=== PATIENT | male | born 1990 | race Caucasian/White ===

== ENCOUNTER 2024-10-27 02:55 | Emergency (ER) | payer OTHER, SELFPAY ==
[2024-10-27 02:59] VITALS: BP 160/106
--- NOTE | 2024-10-27 03:32 | ED.GENMED ---
History of Present Illness
General
Chief Complaint: Back Pain
Source: patient
Exam Limitations: none
Time Seen by Provider: 10/27/24 03:18
History of Present Illness
History of Present Illness:
See MDM
Past History
Past History
ED Past Medical History: None
ED Past Surgical History: Orthopedic
Social History
Tobacco: Non-smoker
Alcohol: None
Phy Exam
Physical Exam
Physical Exam:
See MDM
Course
Orders/Labs/Results
Orders:
Orders
10/27/24 03:26
Ketorolac [Toradol] 30 mg IM NOW STA
Prednisone [Deltasone] 50 mg PO NOW STA
Lumbar Spine, 2 or 3 View [CR Lumbar Spine 2 Or 3 Views] Urgent
Comment:
Reason For Exam: back pain radiating down left leg
10/27/24 04:32
Oxycodone/Acetaminophen [Percocet 5/325] 1 tablet PO NOW STA
Vital Signs
Initial and Last Documented VS:
Initial Vital Signs
Temp Pulse Resp BP Pulse Ox
97.9 F 68 20 160/106 99
10/27/24 02:59 10/27/24 02:59 10/27/24 02:59 10/27/24 02:59 10/27/24 02:59
Last Documented Vital Signs
Temp Pulse Resp BP Pulse Ox
97.9 F 68 20 160/106 99
10/27/24 02:59 10/27/24 02:59 10/27/24 02:59 10/27/24 02:59 10/27/24 03:33
MDM/Problems Addressed
Differential Diagnosis Includes:
Note:
CHIEF COMPLAINT(S)
Worsening back pain radiating down the leg.
HISTORY OF PRESENT ILLNESS
The patient is a 34-year-old male presenting with worsening back pain that began approximately two weeks ago after attending a bachelor constitution party. The pain was severe enough that he spent the following day lying on the floor. He reports experiencing
intermittent episodes of back pain in the past, but nothing of this severity. The current pain radiates down his right leg, primarily affecting the calf, with associated numbness in the toes. He describes the pain as exacerbated by certain movements
but alleviated slightly when the leg is positioned in a specific way. Despite using npgw-yac-[id number] treatments such as ibuprofen, acetaminophen, ice, and dual-action Advil, the relief has been insufficient. He denies any numbness in the rectal
area, trouble urinating, or fevers.
PHYSICAL EXAM
General: Alert, no acute distress.
Skin: Warm, dry.
Head: Normocephalic, atraumatic
Neck: Appears supple, trachea midline.
Eyes, Ears, Nose, Mouth, and Throat: Oral mucosa moist.
Cardiovascular: No signs of cyanosis
Respiratory: Respirations are non-labored.
Abdomen: Non-distended
Back: No tenderness or skin changes
Musculoskeletal: No deformities. Positive straight leg raise to the left. Distal extremity neurovascular intact
Neurological: No focal neurological deficit observed.
Psychiatric: Cooperative, appropriate mood and affect.
PROBLEM LIST
Acute:
- Sciatica, likely due to lumbar disc herniation
PLAN
1. Administer a Toradol (ketorolac) injection and prescribe the oral form for home use with instructions not to exceed four days of use to avoid potential complications.
2. Prescribe oral steroids to manage suspected inflammation at the site of nerve irritation.
3. Provide the patient with a referral to an orthopedist for further evaluation and management.
4. Educate the patient on the nature of sciatic nerve pain and expected outcomes with treatment.
DIFFERENTIAL DIAGNOSIS
The Differential Diagnosis includes, in no particular order and is not limited to:
1. Lumbar disc herniation
2. Lumbar spinal stenosis
3. Piriformis syndrome
4. Spondylolisthesis
5. Lumbar facet joint syndrome
6. Sacroiliac joint dysfunction
7. Peripheral neuropathy
8. Vertebral compression fracture
9. Ankylosing spondylitis
10. Muscle strain or ligamentous injury of the lumbar spine
SUMMARY OF ENCOUNTER
The patient, a 34-year-old male, presented to the emergency department with worsening back pain radiating down the right leg, predominantly affecting the calf, and associated numbness in the toes. The pain began approximately two weeks ago and was
not fully relieved by [id number]-yaq-lugthto medications. Upon evaluation, the plan included administering a Toradol injection and prescribing oral medications for home management.
DISPOSITION
Discharge.
ASSESSMENT
The patients symptoms and examination findings suggest sciatica, likely due to lumbar disc herniation.
EMERGENCY TREATMENTS ADMINISTERED
A Toradol (ketorolac) injection was administered.
PLAN
Prescribe oral prednisone and NSAIDs for pain and inflammation management. Educate the patient on return precautions, such as worsening symptoms or inability to control the pain with the prescribed medications, and discuss follow-up with orthopedic
care.
INDEPENDENT REVIEW OF LABS AND INTERPRETATION OF TESTS
My independent interpretation of the lumbar x-ray shows no significant abnormalities.
PATIENT EDUCATION AND COUNSELING
Educated the patient about the potential causes of sciatic nerve pain and the importance of following up with an youth career specialist for further evaluation and management.
FOLLOW-UP INSTRUCTIONS
The patient was advised to follow up with an youth career specialist for further evaluation. A work note was provided.
MEDICATION RECONCILIATION
1. Toradol (ketorolac) injection administered in the emergency department.
2. Prescription for prednisone.
3. Recommendation for NSAIDs prescribed.
MEDICAL DECISION MAKING
- Number and Complexity of Problems Addressed: Acute conditions related to sciatica with consideration of differential diagnosis including lumbar disc herniation.
- Data:
Category 1
Clinical information obtained from an independent interpretation of the lumbar x-ray.
- Risk:
Prescription medication was prescribed, including oral steroids and NSAIDs, to manage pain and inflammation. Consideration of outpatient management with instructions for close follow-up due to the complexity of the presenting complaint.
DIAGNOSIS
1. Sciatica, M54.31.
*Pulse Oximetry
SaO2: 99
Oxygen Mode of Delivery: Room air
Patient hypoxic: no
*Critical Care Note
Total Time (30-74mins, 75-104mins- exclusive of procedures): Not Applicable
ED Attending Note
-
Portions of this chart may have been created with voice recognition software.� Occasional wrong word or��sound alike� substitutions may have occurred due to the inherent limitations of voice recognition software.
Discharge Plan
Departure
Patient Disposition: Home (Routine Discharge)
Date of Disposition: 10/27/24
Time of Disposition: 04:32
Patient with high blood pressure during this ER visit?: Yes
Discharge Problem:
Sciatica
Instructions: Sciatica (DC), BLOOD PRESSURE
Prescriptions:
New
prednisone 20 mg tablet
40 mg PO DAILY Qty: 10 0RF
diclofenac sodium 75 mg tablet,delayed release (DR/EC)
75 mg PO BID PRN (Reason: Pain) Qty: 20 0RF
Referrals:
Jacob Medina MD [Active, Orthopedics]
UNKNOWN - PT DOES,NOT KNOW [Family Provider]
Stand Alone Forms: Return to Work
Activity Restrictions/Additional Instructions:
Please return for any worsening symptoms.
You may return at any time if you have further concerns.
Please follow up with the orthopedist if symptoms persist.
Today you received a dose of prednisone which is a steroid and a dose of Toradol which is in the family of NSAIDs. You are also given a one-time dose of Percocet which is a narcotic. I prescribed the prednisone and a different medication called
diclofenac which is also an NSAID.
Thank you for choosing [facility].
Interventions
Interventions:
*Risk Screen - Suicide Last Done: 10/27/24 02:59
*General Assessment Last Done: 10/27/24 02:59
*Neglect/Abuse Screening Last Done: 10/27/24 02:59
*ED- Fall Risk Assessment Last Done: 10/27/24 02:59
*ED COVID-19 Vaccine History Last Done: 10/27/24 02:59
ED-Musculoskeletal Assessment Last Done: 10/27/24 03:31
Discharge Date and Time
Print Language: TAJIK
[2024-10-27 03:38] VITALS: BMI 28.6
[2024-10-27] MEDS: TORADOL 30 MG IM (03:38)
[2024-10-27] MEDS: DELTASONE 50 MG PO (03:39)
[2024-10-27] MEDS: PERCOCET 5/325 1 TABLET PO (04:41)
[2024-10-27 04:42] VITALS: BP 149/88
== END 2024-10-27 04:49 | disposition home or self-care (01) ==
LOC: EMR 02:55
PROVIDERS: EMERGENCY PHYSICIAN Student in an Organized Health Care Education/Training Program
DX: M54.31 Sciatica, right side (principal)
CPT/HCPCS: 96372; 99284; 72100